=== PATIENT | male | born 1960 | race Caucasian/White ===

== ENCOUNTER → 2018-05-23 | Outpatient (CLI) | payer OTHER ==
--- NOTE | 2018-05-23 09:01 | Diagnostic Imaging Report ---
FLUOROSCOPIC BARIUM SWALLOW HISTORY: Difficulty swallowing. PERSONAL FINANCIAL COUNSELOR: Rosanna Crawley MD Comparison: None. Procedure: Double contrast barium swallow was performed using thick and thin oral barium and effervescent crystals. Radiation Exposure: Fluoroscopy Time: 2 minutes Radiation dose: 55.9 mGy DISCUSSION: SWALLOW: No evidence of gross penetration or aspiration. There is residual contrast within the piriform sinuses which eventually clears. ESOPHAGUS: Motility: There is an initial primary contraction which clears part of the contrast within the esophagus. Subsequently there are multiple secondary and tertiary contractions with hold up of contrast within the proximal and mid esophagus, particularly in the supine position. The contrast eventually clears the esophagus into the stomach. Mucosa: Unremarkable. Distensibility: Unremarkable. GASTROESOPHAGEAL JUNCTION: Small hiatal hernia. GASTROESOPHAGEAL REFLUX: Mild inducible gastroesophageal reflux. STOMACH: Normally distensible and demonstrates normal contours and mucosal pattern. DUODENUM/PROXIMAL SMALL BOWEL: Small duodenal diverticulum. Otherwise unremarkable. IMPRESSION: Small hiatal hernia with mild inducible gastroesophageal reflux. Multiple secondary and tertiary contractions with delayed clearance of contrast from the proximal and mid esophagus. Findings are nonspecific but could represent motility disorder. No evidence of gross aspiration. Residual contrast within the piriform sinuses. Consider modified barium swallow for further evaluation in the setting of dysphagia. Signed by: Dr. Rosanna Crawley MD on 05/23/2018 8:58 AM
== END ==
LOC: DX 07:50
PROVIDERS: ATTEND Otolaryngology
DX: R13.13 Dysphagia, pharyngeal phase (principal)
CPT/HCPCS: 74220

== ENCOUNTER → 2018-09-22 | Day surgery (SDC) | payer BC ==
[2018-09-21 16:36] LABS: BASOPHILS # (AUTO) 0.1 (0.0-0.1); BASOPHILS % 0.9 % (0.0-1.0); EOSINOPHILS # (AUTO) 0.2 (0.0-0.4); EOSINOPHILS % 2.6 % (0.0-6.0); HEMOGLOBIN 14.9 g/dL (14.0-18.0); LYMPHOCYTES # (AUTO) 1.4 (1.0-3.2); LYMPHOCYTES % 24.9 % (18.0-39.1); MEAN CORPUSCULAR HEMOGLOBIN 29.9 pg (28-32); MEAN CORPUSCULAR HGB CONC 34.7 g/dL (31-35); MEAN CORPUSCULAR VOLUME 86.2 fL (81-99); MONOCYTES # (AUTO) 0.4 (0.2-0.8); MONOCYTES % 7.4 % (4.4-11.3); NEUTROPHILS # (AUTO) 3.7 (2.1-6.9); NEUTROPHILS % 63.8 % (38.7-80.0); PLATELET COUNT 204 x10e3/uL (140-360); RED BLOOD COUNT 4.99 x10e6/uL (4.3-5.7)
[~2018-09-22] MED LIST: FENTANYL CITRATE/PF 100MCG/2 ML INJ ONE; HYOSCYAMINE 0.125 MG TAB ONE; LIDOCAINE HCL 2% LOCAL INJ 5 ML SDV VIAL INJ ONE; MIDAZOLAM HCL 2 MG/2 ML VIAL ONE; PROPOFOL IV EMULSION 10 MG/ML 50 ML VIAL ONE
--- OUTSIDE RECORDS SUMMARY | 2018-09-22 07:04 | XMS REPORT ---
Author Author [facility] Address Unknown Phone Unavailable Care Team Providers Care Auxiliary Operator Name Role Phone JORDON GUDINO Unavailable Unavailable Problems This patient has no known problems. Allergies, Adverse Reactions, Alerts This patient has no known allergies or adverse reactions. Medications This patient has no known medications. Encounters Start Date/Time End Date/Time Encounter Type Admission Type Attending Clinicians Care Facility Care Department Encounter ID 2018-06-13 14:46:45 Outpatient [id number] Results Test Description Test Time Test Comments Text Results Atomic Results Result Comments BARIUM SWALLOW 2018-05-23 08:53:00 [place] [id number] Patient Name: KAYLAH STEVE MR #: [id number] : 1960 Age/Sex: 58/M Req #: [id number] [facility] Physician: Ordered by: JORDON GUDINO MD Report #: [id number] Location: DX Room/Bed: Procedure: [id number] DX/BARIUM SWALLOW Exam Date: 05/23/18 Exam Time: 819 REPORT STATUS: Signed FLUOROSCOPIC BARIUM SWALLOW HISTORY: Difficulty swallowi ng. SKIN DIVER: Evy Gill MD Comparison: None. Procedure: Double contrast barium swallow was performed using thick and thin oral barium and effervescent crystals. Radiation Exposure: Fluoroscopy Time: 2 minutes Radiation dose: 55.9 mGy DISCUSSION: SWALLOW: No evidence of gross penetration or aspiration. There is residual contrast within the piriform sinuses which eventually clears. ESOPHAGUS: Motility: There is an initial primary contraction which clears part of the contrast within the esophagus. Subsequently there are multiple secondary and tertiary contractions with hold up of contrast within the proximal and mid esophagus, particularly in the supine position. The contrast eventually clears the esophagus into the stomach. Mucosa: Unremarkable. Distensibility: Unremarkable. GASTROESOPHAGEAL JUNCTION: Small hiatal hernia. GASTROESOPHAGEAL REFLUX: Mild inducible gastroesophageal reflux. STOMACH: Normally distensible and demonstrates normal contours and mucosal pattern. DUODENUM/PROXIMAL SMALL BOWEL: Small duodenal diverticulum. Otherwise unremarkable. IMPRESSION: Small hiatal hernia with mild inducible gastroesophageal reflux. Multiple secondary and tertiary contractions with delayed clearance of contrast from the proximal and mid esophagus. Findings are nonspecific but could represent motility disorder. No evidence of gross aspiration. Residual contrast within the piriform sinuses. Consider modified barium swallow for further evaluation in the setting of dysphagia. Signed by: Dr. Evy Gill MD on 05/23/2018 8:58 AM Dictated By: EVY GILL MD 7 Transcribed By: NEL on 05/23/18857 COPY TO: JORDON GUDINO MD
[2018-09-22 11:00] VITALS: BP 106/75
--- NOTE | 2018-09-22 12:34 | Operative Report ---
DATE OF PROCEDURE: 09/22/2018 SURGEON: Jack Davis MD PROCEDURES: EGD with esophageal dilatation and biopsies and colonoscopy with polypectomy. INDICATIONS FOR EGD: Dysphagia and heartburn. INDICATIONS FOR COLONOSCOPY: Colorectal cancer screening. MEDICATIONS: The patient was done under MAC, please see anesthesiologist's note. PROCEDURE IN DETAIL: With the patient in left lateral decubitus position, a flexible fiberoptic Olympus gastroscope was introduced into the esophagus under direct visualization without any difficulty. There was an erosion noted in the distal esophagus. There were also mild concentric rings noted in the esophagus, suspicious for eosinophilic esophagitis. A mild stricture was noted at the GE junction that was somewhat nodular and was biopsied and dilated to size 50-Uzbek Herrera. Also, biopsies were obtained from the esophagus to rule out EOE. The mucosa overlying the antrum and the body revealed some diffuse erythema and low-grade to moderate edema and biopsies were obtained and sent to stain for H. pylori. The pylorus was of normal contour and shape, it was intubated with ease and the scope was advanced all the way to the second portion of the duodenum. Biopsies were obtained from the second portion and duodenal bulb to rule out sprue. The scope was then withdrawn back into the stomach and retroflexed, and mucosa overlying the fundus and the cardia appeared to be within normal limits. The scope was then straightened out, it was subsequently withdrawn, and the patient tolerated the procedure well. IMPRESSION: 1. Rule out eosinophilic esophagitis. 2. Distal erosive esophagitis. 3. Esophageal stricture at GE junction dilated to size 50-Uzbek Herrera, biopsied. 4. Gastritis, biopsied, biopsies sent to stain for Helicobacter pylori. 5. Rule out sprue. PLAN: Follow up histology. Initiate Protonix 40 mg one p.o. q.a.m. before meals. The patient was then turned around and after adequate lubrication of the anal canal, a flexible fiberoptic Olympus colonoscope was inserted into the rectum with ease and advanced all the way to the cecum. A single diverticulum was noted in the cecum. The scope was then withdrawn slowly. Mucosa overlying the ascending colon appeared to be within normal limits. One polyp was snared from the transverse colon. The descending colon appeared to be within normal limits. One polyp was hot biopsied from the sigmoid colon. The rectum appeared to be within normal limits. The scope was then retroflexed into the distal rectum and moderate-sized internal hemorrhoids were noted, none of which was actively bleeding. The scope was then straightened out, it was subsequently withdrawn, and the patient tolerated the procedure well. IMPRESSION: 1. Transverse colon polyp, snared. 2. Sigmoid colon polyp, hot biopsied. 3. Internal hemorrhoids, none actively bleeding. PLAN: Follow up histology. Initiate high-fiber, low-fat diet. Initiate high-fiber supplement. The patient might benefit from a followup colonoscopy in 5 years. Jack Davis MD [facility] [place]RA[facility] /[id number] cc: Clyde Muniz DO
== END | disposition home or self-care (01) ==
LOC: OR 06:56
PROVIDERS: ATTEND Internal Medicine Gastroenterology
DX: K22.2 Esophageal obstruction (principal); K29.70 Gastritis, unspecified, without bleeding; K63.5 Polyp of colon; K64.8 Other hemorrhoids; K29.80 Duodenitis without bleeding; K21.0 Gastro-esophageal reflux disease with esophagitis; D12.3 Benign neoplasm of transverse colon; R13.10 Dysphagia, unspecified; R12 Heartburn; E66.9 Obesity, unspecified; G47.33 Obstructive sleep apnea (adult) (pediatric); I49.8 Other specified cardiac arrhythmias; Z95.810 Presence of automatic (implantable) cardiac defibrillator; Z87.442 Personal history of urinary calculi; K22.10 Ulcer of esophagus without bleeding; Z01.810 Encounter for preprocedural cardiovascular examination; Z01.812 Encounter for preprocedural laboratory examination; Z68.41 Body mass index [BMI] 40.0-44.9, adult
CPT/HCPCS: 36415; 43239; 43450; 45384; 45385; 85025; 93005; J2001; J2250; J2704; J3010; 45378

== ENCOUNTER → 2019-01-20 | Day surgery (SDC) | payer BC ==
[2019-01-18 12:51] LABS: BASOPHILS # (AUTO) 0.1 (0.0-0.1); BASOPHILS % 0.8 % (0.0-1.0); EOSINOPHILS # (AUTO) 0.2 (0.0-0.4); EOSINOPHILS % 2.8 % (0.0-6.0); HEMATOCRIT 43.1 % (38.2-49.6); HEMOGLOBIN 14.6 g/dL (14.0-18.0); LYMPHOCYTES # (AUTO) 1.4 (1.0-3.2); LYMPHOCYTES % 22.4 % (18.0-39.1); MEAN CORPUSCULAR HEMOGLOBIN 29.8 pg (28-32); MEAN CORPUSCULAR HGB CONC 33.9 g/dL (31-35); MONOCYTES # (AUTO) 0.5 (0.2-0.8); MONOCYTES % 7.5 % (4.4-11.3); NEUTROPHILS # (AUTO) 4.1 (2.1-6.9); NEUTROPHILS % 66.2 % (38.7-80.0); PLATELET COUNT 216 x10e3/uL (140-360); RED CELL DISTRIBUTION WIDTH 13.1 % (11.7-14.4)
[2019-01-18 13:31] LABS: ALANINE AMINOTRANSFERASE 40 IU/L (0-55); ALBUMIN 3.6 g/dL (3.5-5.0); ALBUMIN/GLOBULIN RATIO 0.9 (0.8-2.0); ALKALINE PHOSPHATASE 92 IU/L (40-150); ANION GAP 12.3 mmol/L (8-16); BLOOD UREA NITROGEN 14 mg/dL (7-26); BUN/CREATININE RATIO 14 (6-25); CALCIUM 9.6 mg/dL (8.4-10.2); CARBON DIOXIDE 25 mmol/L (22-29); CHLORIDE 105 mmol/L (98-107); CREATININE, SERUM 1.01 mg/dL (0.72-1.25); EST GLOMERULAR FILTRATION RATE > 60 ML/MIN (60-); GLUCOSE 146 mg/dL (74-118); POTASSIUM 4.3 mmol/L (3.5-5.1); SODIUM 138 mmol/L (136-145)
[2019-01-20] VITALS (8 sets, daily range): BP systolic 121–170; BP diastolic 55–87
[~2019-01-20] VITALS: Ht 177.8 cm; Wt 136.1 kg
[~2019-01-20] MED LIST changes: +ALPRAZOLAM 0.5 MG TAB ONE; +DIPHENHYDRAMINE HCL 25 MG CAP ONE; +HEPARIN SOD/SOD CHLORIDE 2,000 ML ONE; -HYOSCYAMINE 0.125 MG TAB ONE; +IOPAMIDOL 370 MG/ML 200 ML INFUS..BTL INJ ONE; +LIDOCAINE HCL 2% LOCAL 20 ML VIAL ONE; -LIDOCAINE HCL 2% LOCAL INJ 5 ML SDV VIAL INJ ONE; -PROPOFOL IV EMULSION 10 MG/ML 50 ML VIAL ONE; +SODIUM CHLORIDE 0.9% 1000ML 1,000 ML ONE
--- NOTE | 2019-01-20 15:06 | NUR ---
1506t in Rm #10, Report recieved from Dane Jones. Alert oriented and appropriate, PERRLA, respirations even and unlabored to room air. Pulses x4 extremities equal and faint. Pedal pulses PT/DP weak to nonexistent and marked. Cap fill brisk < 3 sec. bilateral feet semi cool and pale. TR band ok down at 1600pm and ok to dc home. Skin warm and dry integrity appears intact in general. NS IV infusing started and presents healthy w/o s/s of infiltration or complaint. . Abdomen soft and supple. pt offered toileting, denies need to urinate or defecate. Personal affects with patient. Family at bedside. Pt and family verbalizes understanding of POC. Pre-Op Meds benadryl and xanax given. bed low and locked, side rails up x2 and call light at side. ds/rn.
--- NOTE | 2019-01-20 16:00 | NUR ---
1600p RADIAL Compression removal: Initial Cuff volume 12 cc 1600p -2 cc Removed No hematoma/bleeding noted with normal neurovascular function. 1615p -5cc Removed No hematoma/ bleeding noted with normal neurovascular function. 1630p -5 cc Removed No hematoma/bleeding noted with normal neurovascular function. Air removal completed. Stasis achieved sterile 2x2,Tegaderm, Coban dressing No hematoma, bleeding noted with normal neurovascular function. Wrist splint in place. Pt instructed on POC. Ds/Rn
--- NOTE | 2019-01-20 16:30 | NUR ---
1630 Pt meets DC criteria. Stable assessed for s/s of complication and presence of hematoma. Skin warm, dry, no discolor, and pulses present. IV removed from . Distal tip appears intact. VS WNL. Pt denies pain, sob, or need at this time. Family at bedside. Review of discharge paperwork and follow up instructions. verbalized understanding. Pt to wheelchair and transported to front of hospital. Transferred to private vehicle under own strength w/o incident with DC paperwork in hand. - ds/rn
--- NOTE | 2019-01-20 21:44 | Operative Report ---
DATE OF PROCEDURE: 01/20/2019 SURGEON: Bernardo Anaya MD INDICATIONS: Coronary artery disease, abnormal stress test. PROCEDURES PERFORMED: 1. Left heart catheterization, selective coronary angiography. 2. Deployment of right wrist TR band. COMPLICATIONS: None. RECOMMENDATIONS: Medical therapy. DESCRIPTION OF PROCEDURE: Access obtained in the right radial artery. A 5-[place] sheath was placed. Coronary angiography demonstrated 50% proximal and 50% mid left anterior descending artery stenosis, mild disease, 10% to 20% luminal stenosis in all vessels. Aortic valve could not be crossed despite numerous events. The right wrist TR band applied. The patient discharged home. Bernardo Anaya MD [facility] /[id number]
== END | disposition home or self-care (01) ==
LOC: CATH LAB 13:00
PROVIDERS: ATTEND Internal Medicine Interventional Cardiology
DX: I25.10 Atherosclerotic heart disease of native coronary artery without angina pectoris (principal); R94.39 Abnormal result of other cardiovascular function study; I49.8 Other specified cardiac arrhythmias; G47.33 Obstructive sleep apnea (adult) (pediatric); Z01.812 Encounter for preprocedural laboratory examination; Z68.41 Body mass index [BMI] 40.0-44.9, adult
CPT/HCPCS: 36415; 80053; 85025; 93454; C1769; C1887; J2001; J2250; J3010; J7030; Q9967; 99152